=== PATIENT | male | born 1990 | race African-American/Black ===

== ENCOUNTER 2016-10-03 11:47 | Emergency (ER) | payer MEDICAID ==
[~2016-10-03] VITALS: Wt 54.0 kg
[2016-10-03] MEDS ORDERED: HYDR26CR PR (13:17)
[2016-10-03] MEDS ORDERED: DOCU-144 PO (13:17)
[2016-10-03] MEDS ORDERED: HYDR25SU23 PR (13:17)
--- NOTE | 2016-10-03 13:28 | ERD ---
ER Documentation Chief Complaint Date/Time DATE: 10/03/16 TIME: 13:27 Chief Complaint rectal bleeding intermittent for 2 wks for hemmrhoids HPI 26-year-old male comes in with a hemorrhoid that is external for the past 2 weeks with intermittent bleeding. Patient states that after his bowel movement patient reports some bleeding to the area, however no blood in his stools. There is limited pain with this. Denies fevers or chills. ROS All systems reviewed and are negative except as per history of present illness. Medications Home Meds Active Scripts Docusate Sodium* (Colace*) 100 Mg Capsule, 100 MG PO BID, #60 CAP Prov:ELVIRA WHITE PA-C 10/03/16 Hydrocortisone* Rectal (Preparation H* Cream) 1% - 26 Gm Cream.gm., 1 APPLIC VA BID, #1 TUB Prov:ELVIRA WHITE PA-C 10/03/16 Hydrocortisone Acetate (Anusol-Hc) 25 Mg Supp.rect, 1 SUPP VA BID Y for HEMORROID PAIN/ITCHING, #12 SUPP.RECT Prov:ELVIRA WHITE PA-C 10/03/16 Physical Exam Vitals Vital Signs Date Time Temp Pulse Resp B/P Pulse Ox O2 Delivery O2 Flow Rate FiO2 10/03/16 11:52 97.5 78 20 119/75 99 Physical Exam General: Well-developed, well-nourished. The patient appears in no acute distress. HEENT: Head is normocephalic, atraumatic. No scleral icterus. Neck: Supple. Nontender. Lungs: Clear to auscultation. Normal air movement. Heart: Regular rate and rhythm. S1 and S2 are normal. No murmurs, gallops, or rubs. Abdomen: Soft, nontender, nondistended. Bowel sounds are normoactive. rectal: Normal tone, there is a 1.5 cm external hemorrhoid noted at the 2 o' clock position, there is a small opening, nonthrombosed, nontender, no fluctuance or surrounding erythema. No masses. Extremities: No clubbing or cyanosis. Normal pulses. Moving extremities x 4. No weakness. Neurologic: Alert and oriented 3. No focal deficits. Skin: Normal turgor. No rash or lesions. Procedures/MDM 26-year-old male comes in with an external hemorrhoid, there is no evidence of a thrombosed hemorrhoid, perianal perirectal abscess, no signs of any infectious process. It appears that this may have been partially thrombosed and has drained on its own. Patient was advised to do sitz baths, will discharge with anusol and preparation H . Departure Diagnosis: Primary Impression: Hemorrhoid Condition: Good Patient Instructions: Hemorrhoids Referrals: [facility] YOU HAVE RECEIVED A MEDICAL SCREENING EXAM AND THE RESULTS INDICATE THAT YOU DO NOT HAVE A CONDITION THAT REQUIRES URGENT TREATMENT IN THE EMERGENCY DEPARTMENT. FURTHER EVALUATION AND TREATMENT OF YOUR CONDITION CAN WAIT UNTIL YOU ARE SEEN IN YOUR DOCTORS OFFICE WITHIN THE NEXT 1-2 DAYS. IT IS YOUR RESPONSIBILITY TO MAKE AN APPOINTMENT FOR FOLOW-UP CARE. IF YOU HAVE A PRIMARY DOCTOR --you should call your primary doctor and schedule an appointment IF YOU DO NOT HAVE A PRIMARY DOCTOR YOU CAN CALL OUR PHYSICIAN REFERRAL HOTLINE AT IF YOU CAN NOT AFFORD TO SEE A PHYSICIAN YOU CAN CHOSE FROM THE FOLLOWING [facility] [address] [facility]. [facility] [address] [facility] [facility] [address] [facility] [address] [facility]. [facility] [address] [facility]. [facility]. [address] [facility]. [facility] YOU HAVE RECEIVED A MEDICAL SCREENING EXAM AND THE RESULTS INDICATE THAT YOU DO NOT HAVE A CONDITION THAT REQUIRES URGENT TREATMENT IN THE EMERGENCY DEPARTMENT. FURTHER EVALUATION AND TREATMENT OF YOUR CONDITION CAN WAIT UNTIL YOU ARE SEEN IN YOUR DOCTORS OFFICE WITHIN THE NEXT 1-2 DAYS. IT IS YOUR RESPONSIBILITY TO MAKE AN APPOINTMENT FOR FOLOW-UP CARE. IF YOU HAVE A PRIMARY DOCTOR --you should call your primary doctor and schedule and appointment IF YOU DO NOT HAVE A PRIMARY DOCTOR YOU CAN CALL OUR PHYSICIAN REFERRAL HOTLINE AT . IF YOU CAN NOT AFFORD TO SEE A PHYSICIAN YOU CAN CHOSE FROM THE FOLLOWING [facility], [facility] INSTITUTIONS: [facility] [address] [place] [address] [facility] [address] [place] [address] [facility] + [facility] [address] [place] [address] [facility] Additional Instructions: Call your primary care doctor TOMORROW for an appointment during the next 1-2 days.See the doctor sooner or return here if your condition worsens before your appointment time. ELVIRA WHITE PA-C Oct 03, 2016 13:28
== END 2016-10-03 13:30 | disposition home or self-care (01) ==
LOC: FTE 11:47
DX: K64.4 Residual hemorrhoidal skin tags (principal)
CPT/HCPCS: 99284

== ENCOUNTER 2016-11-27 18:29 | Emergency (ER) | payer MEDICAID ==
[~2016-11-27] VITALS: Ht 175.3 cm; Wt 60.0 kg
[~2016-11-27 18:29] MED LIST: DOCU-144 PO; HYDR25SU23 PR; HYDR26CR PR
[2016-11-27 18:59] VITALS: Ht 175.3 cm; Wt 60.0 kg
--- NOTE | 2016-11-27 22:49 | ERD ---
ER Documentation Chief Complaint Date/Time DATE: 11/27/16 TIME: 22:32 Chief Complaint wound check rectal area HPI This pleasant 26-year-old male patient presents to emergency department today with possible rectal abscess or nonhealing hemorrhoid. Patient was seen in emergency department over 4 weeks ago and treated for hemorrhoids. Patient reports that he took medication as prescribed, has increased fiber, water, patient continues to have a draining rectal wound. Patient reports chronic purulent drainage and a pustule-like lesion and sphincter patient reports blood on toilet paper with wiping, painful defecation, is able to sit without discomfort. Patient denies prior history of hemorrhoids. Reports sexually active and practices sodomy, patient reports that he has not had relations since symptoms started over 4 weeks ago. ROS All systems reviewed and are negative except as per history of present illness. Medications Home Meds Active Scripts Hydrocodone/Acetaminophen ([place] 5-325 Tablet) 1 Each Tablet, 1 TAB PO Q6H Y for PAIN, #7 TAB Prov:FADUMO,MARGARITA 11/27/16 Metronidazole* (Flagyl*) 500 Mg Tablet, 500 MG PO TID for 7 Days, TAB Prov:FADUMO,MARGARITA 11/27/16 Clindamycin Hcl* (Clindamycin Hcl*) 300 Mg Capsule, 300 MG PO TID for 10 Days, CAP Prov:FADUMO,MARGARITA 11/27/16 Docusate Sodium* (Colace*) 100 Mg Capsule, 100 MG PO BID, #60 CAP Prov:ELVIRA WHITE PA-C 10/03/16 Hydrocortisone* Rectal (Preparation H* Cream) 1% - 26 Gm Cream.gm., 1 APPLIC ND BID, #1 TUB Prov:ELVIRA WHITE PA-C 10/03/16 Hydrocortisone Acetate (Anusol-Hc) 25 Mg Supp.rect, 1 SUPP ND BID Y for HEMORROID PAIN/ITCHING, #12 SUPP.RECT Prov:ELVIRA WHITE PA-C 10/03/16 Allergies Allergies: Coded Allergies: No Known Allergy (Unverified , 10/03/16) PMhx/Soc History of Surgery: No Anesthesia Reaction: No Hx Neurological Disorder: No Hx Respiratory Disorders: No Hx Cardiac Disorders: No Hx Psychiatric Problems: No Hx Miscellaneous Medical Probl: No Hx Alcohol Use: No Hx Substance Use: No Hx Tobacco Use: No Smoking Status: Never smoker Physical Exam Vitals Vital Signs Date Time Temp Pulse Resp B/P Pulse Ox O2 Delivery O2 Flow Rate FiO2 11/27/16 18:59 97.5 87 20 122/80 100 Vitals stable, triage notes reviewed Physical Exam Const: [] Head: Atraumatic Eyes: Normal Conjunctiva ENT: Normal External Ears, Nose and Mouth. Neck: Full range of motion..~ No meningismus. Resp: Clear to auscultation bilaterally Cardio: Regular rate and rhythm, no murmurs Abd: Soft, non tender, non distended. Normal bowel sounds Skin: No petechiae or rashes Back: No midline or flank tenderness Ext: No cyanosis, or edema Neur: Awake and alert Psych: Normal Mood and Affect Procedures/MDM This pleasant 26-year-old male patient presents to emergency department today for evaluation of a draining perianal lesion. Differential diagnosis includes but is not limited to rectal abscess, fistula, fissure or ulcer. Physical exam finding external opening of perianal fistula visualized, draining fluid. Case discussed with , discussed possible imaging, decided against imaging , patient will be referred to Dr. Hardik Flower, general surgery, started on clindamycin and Flagyl , and [place] as needed pain strict return to emergency department guidelines. Return to emergency department for fever, bleeding, nausea or vomiting. Take all medication as prescribed, call general surgeon, follow-up with primary care if referral is needed. I feel patient is appropriate for outpatient management follow-up as outlined above. I feel the patient is stable for discharge at this time. I have discussed results, examination findings, the treatment plan with the patient and family present prior to discharge. Indications for emergent reevaluation, side effects of medication were also discussed. All questions were answered. Patient verbalizes understanding and agrees with plan of care. Departure Diagnosis: Primary Impression: Perianal fistula Condition: Stable Patient Instructions: Anal Fistula Additional Instructions: Thank you for for coming to [facility] for your care today. Please ask your nurse or provider if you have questions about your care today and do not leave until all your questions have been answered. Please use any medications given as directed and follow-up with your doctor (or the doctor you were referred to) in the next 2-3 days. If you do not have a primary care doctor you may follow up at the [facility] (listed below). You may also use motrin and tylenol as needed for fever and/or pain unless instructed otherwise by your provider or nurse. Indications for more urgent follow-up have been discussed, but you may return to the Emergency Department at ANY time for any worrisome or worsening symptoms. If you have abdominal pain, please know that no test or exam you received is perfect and you should follow up within 8 hours for continued pain. If you had any imaging studies today, such as an X-Ray or CT Scan, these studies will be reviewed later by a radiologist. You will be called if there are important findings that were not identified today, so make sure the contact information you provided at registration is correct. If you received any narcotic pain control medicine today, such as Vicodin, Morphine or Dilaudid, your coordination and judgment may be affected for a number of hours. Please do not drive or operate heavy machinery, and you may want someone to assist you at home. If you were given a prescription for narcotic medication, be aware that it is very addictive- use sparingly and only if necessary. MARGARITA THORNE Nov 27, 2016 22:46
[2016-11-27] MEDS ORDERED: CLIN-73 PO (22:50)
[2016-11-27] MEDS ORDERED: METR500T PO (22:51)
[2016-11-27] MEDS ORDERED: HYDR-906 PO (22:51)
== END 2016-11-27 23:01 | disposition home or self-care (01) ==
LOC: FTE 18:29
DX: K60.3 Anal fistula (principal)
CPT/HCPCS: 99284

== ENCOUNTER 2016-12-21 14:06 | Emergency (ER) | payer MEDICAID ==
[~2016-12-21] VITALS: Ht 157.5 cm; Wt 61.0 kg
[~2016-12-21 14:06] MED LIST changes: +CLIN-73 PO; +HYDR-906 PO; +METR500T PO
[2016-12-21 14:10] VITALS: Ht 157.5 cm; Wt 61.0 kg
[2016-12-21] MEDS ORDERED: AMOX1TAB10 PO (14:25)
--- NOTE | 2016-12-21 14:53 | ERD ---
ER Documentation Chief Complaint Date/Time DATE: 12/21/16 TIME: 14:51 Chief Complaint HAS RECTAL FISSURE X 3 MOS, WANTS TO HAVE CHECK UP/SURGERY HPI Patient is a 26-year-old male with no medical problems who presents with an anal fissure. He has been seen twice before for the same. He said that he only has emergency [facility] and has not been able to see the surgeon like he was supposed to. He is bleeding from his anus. He thinks that it might be infected. It started more than 3 months ago. He has tried Anusol in the past without much help. He does not currently have a primary doctor. Upon review of old medical records the patient does have 2 previous visits for similar in the past. ROS All systems reviewed and are negative except as per history of present illness. Medications Home Meds Active Scripts Amoxicillin/Potassium Clav (Amox-Clav 875-125 mg Tablet) 875-125 mg Tab, 1 TAB PO BID for 7 Days, #14 TAB Prov:ANASTACIO SORIA MD 12/21/16 Hydrocodone/Acetaminophen ([place] 5-325 Tablet) 1 Each Tablet, 1 TAB PO Q6H Y for PAIN, #7 TAB Prov:FADUMO,MARGARITA 11/27/16 Metronidazole* (Flagyl*) 500 Mg Tablet, 500 MG PO TID for 7 Days, TAB Prov:FADUMO,MARGARITA 11/27/16 Clindamycin Hcl* (Clindamycin Hcl*) 300 Mg Capsule, 300 MG PO TID for 10 Days, CAP Prov:FADUMO,MARGARITA 11/27/16 Docusate Sodium* (Colace*) 100 Mg Capsule, 100 MG PO BID, #60 CAP Prov:ELVIRA WHITE PA-C 10/03/16 Hydrocortisone* Rectal (Preparation H* Cream) 1% - 26 Gm Cream.gm., 1 APPLIC [place] BID, #1 TUB Prov:ELVIRA WHITE PA-C 10/03/16 Hydrocortisone Acetate (Anusol-Hc) 25 Mg Supp.rect, 1 SUPP [place] BID Y for HEMORROID PAIN/ITCHING, #12 SUPP.RECT Prov:ELVIRA WHITE PA-C 10/03/16 Allergies Allergies: Coded Allergies: No Known Allergy (Unverified , 10/03/16) PMhx/Soc Medical and Surgical Hx: pt denies Medical Hx History of Surgery: No Anesthesia Reaction: No Hx Neurological Disorder: No Hx Respiratory Disorders: No Hx Cardiac Disorders: No Hx Psychiatric Problems: No Hx Miscellaneous Medical Probl: No Hx Alcohol Use: No Hx Substance Use: No Hx Tobacco Use: No FmHx Family History: No diabetes Physical Exam Vitals Vital Signs Date Time Temp Pulse Resp B/P Pulse Ox O2 Delivery O2 Flow Rate FiO2 12/21/16 14:10 98.3 81 18 134/86 99 Physical Exam Const: No acute distress Head: Atraumatic Eyes: Normal Conjunctiva ENT: Normal External Ears, Nose and Mouth. Neck: Full range of motion..~ No meningismus. Resp: Clear to auscultation bilaterally Cardio: Regular rate and rhythm, no murmurs Abd: Soft, non tender, non distended. Normal bowel sounds Skin: No petechiae or rashes Back: No midline or flank tenderness Ext: No cyanosis, or edema Neur: Awake and alert Rectal: Patient does have a significant anal fissure at 3:00 next to a external hemorrhoid which is not bleeding, there is no sign of perirectal abscess Procedures/MDM Patient is a 26-year-old male with no medical problems who presents with an anal fissure. The patient is otherwise well-appearing and there is no active bleeding or signs of perirectal abscess. The patient will be discharged home with prescription for Augmentin. I told him that he will need to follow-up with the [facility] to obtain surgery consultation. The patient would likely benefit from hemorrhoidectomy and repair of the anal fissure. The patient can return for any worsening symptoms. He does not require further workup or admission to the hospital at this time. Departure Diagnosis: Primary Impression: Rectal fissure Condition: Fair Patient Instructions: Having Rectal Surgery Referrals: [facility] YOU HAVE RECEIVED A MEDICAL SCREENING EXAM AND THE RESULTS INDICATE THAT YOU DO NOT HAVE A CONDITION THAT REQUIRES URGENT TREATMENT IN THE EMERGENCY DEPARTMENT. FURTHER EVALUATION AND TREATMENT OF YOUR CONDITION CAN WAIT UNTIL YOU ARE SEEN IN YOUR DOCTORS OFFICE WITHIN THE NEXT 1-2 DAYS. IT IS YOUR RESPONSIBILITY TO MAKE AN APPOINTMENT FOR FOLOW-UP CARE. IF YOU HAVE A PRIMARY DOCTOR --you should call your primary doctor and schedule and appointment IF YOU DO NOT HAVE A PRIMARY DOCTOR YOU CAN CALL OUR PHYSICIAN REFERRAL HOTLINE AT . IF YOU CAN NOT AFFORD TO SEE A PHYSICIAN YOU CAN CHOSE FROM THE FOLLOWING [facility] INSTITUTIONS: [facility] [address] [place], [place] [id number] [place] [address] [address] [place] [id number] Additional Instructions: County: Go to any of the following [facility] in the next 1-2 days. [facility] [address] [place] [address] ANASTACIO SORIA MD December 21, 2016 14:53
== END 2016-12-21 14:44 | disposition home or self-care (01) ==
LOC: E/R 14:06
DX: K60.2 Anal fissure, unspecified (principal)
CPT/HCPCS: 99283

== ENCOUNTER 2017-02-07 12:52 | Emergency (ER) | payer SELFPAY ==
[~2017-02-07] VITALS: Ht 172.7 cm; Wt 54.5 kg
[~2017-02-07 12:52] MED LIST changes: +AMOX1TAB10 PO
[2017-02-07 12:57] VITALS: Ht 172.7 cm; Wt 54.5 kg
[2017-02-07] MEDS ORDERED: ONDANSETRON (ODT) 4 MG TAB ODT STA (13:48)
[2017-02-07] MEDS ORDERED: BEN25 PO (14:18)
[2017-02-07] MEDS ORDERED: HC30CR25 TOP (14:19)
[2017-02-07] MEDS ORDERED: PRED20TA PO (14:19)
[2017-02-07] MEDS ORDERED: ONDA4TAB8 PO (14:19)
--- NOTE | 2017-02-07 14:25 | ERD ---
ER Documentation Chief Complaint Date/Time DATE: 02/07/17 TIME: 14:21 Chief Complaint rash/bumps to the arms and legs-pt noticed it this morning HPI Patient is a 26-year-old male who presents to the ED with a rash on his arms and legs since this morning. He states that the rash is itchy but not painful. He states that he used a new soap and states that it could be associated with that. Denies recent travel. Denies change in foods. He also states that he is slightly nauseous. He states that he had proposes from the street yesterday and he had an episode of nonbloody nonbilious emesis yesterday. No vomiting or diarrhea today but does feel nauseous. Denies abdominal pain. Denies leg pain or leg swelling. Denies headache or dizziness or chest pain or cough or shortness of breath. Denies fever or chills. Denies difficulty breathing or speaking. No other complaints. ROS All systems reviewed and are negative except as per history of present illness. Medications Home Meds Active Scripts Ondansetron Hcl* (Zofran*) 4 Mg Tablet, 4 MG PO Q6H for NAUSEA AND/OR VOMITING, #30 TAB Prov:JN DE LOS SANTOS PA-C 02/07/17 Prednisone* (Prednisone*) 20 Mg Tab, 40 MG PO DAILY for 4 Days, TAB Prov:JN DE LOS SANTOS PA-C 02/07/17 Hydrocortisone* Topical (Hydrocortisone* Topical) 2.5%-28.3 Gm Cream..g., 1 APPLIC TOP BID, #1 TUB Prov:JN DE LOS SANTOS PA-C 02/07/17 Diphenhydramine Hcl* (Benadryl*) 25 Mg Cap, 25 MG PO Q6, #30 CAP Prov:JN DE LOS SANTOS PA-C 02/07/17 Amoxicillin/Potassium Clav (Amox-Clav 875-125 mg Tablet) 875-125 mg Tab, 1 TAB PO BID for 7 Days, #14 TAB Prov:ANASTACIO SORIA MD 12/21/16 Hydrocodone/Acetaminophen ([place] 5-325 Tablet) 1 Each Tablet, 1 TAB PO Q6H Y for PAIN, #7 TAB Prov:FADUMO,MELODY 11/27/16 Metronidazole* (Flagyl*) 500 Mg Tablet, 500 MG PO TID for 7 Days, TAB Prov:FADUMO,MARGARITA 11/27/16 Clindamycin Hcl* (Clindamycin Hcl*) 300 Mg Capsule, 300 MG PO TID for 10 Days, CAP Prov:FADUMO,MARGARITA 11/27/16 Docusate Sodium* (Colace*) 100 Mg Capsule, 100 MG PO BID, #60 CAP Prov:ELVIRA WHITE PA-C 10/03/16 Hydrocortisone* Rectal (Preparation H* Cream) 1% - 26 Gm Cream.gm., 1 APPLIC VA BID, #1 TUB Prov:ELVIRA WHITE PA-C 10/03/16 Hydrocortisone Acetate (Anusol-Hc) 25 Mg Supp.rect, 1 SUPP VA BID Y for HEMORROID PAIN/ITCHING, #12 SUPP.RECT Prov:ELVIRA WHITE PA-C 10/03/16 Allergies Allergies: Coded Allergies: No Known Allergy (Unverified , 10/03/16) PMhx/Soc History of Surgery: No Anesthesia Reaction: No Hx Neurological Disorder: No Hx Respiratory Disorders: No Hx Cardiac Disorders: No Hx Psychiatric Problems: No Hx Miscellaneous Medical Probl: No Hx Alcohol Use: No Hx Substance Use: No Hx Tobacco Use: No Smoking Status: Never smoker FmHx Family History: No coronary disease, No diabetes, No other Physical Exam Vitals Vital Signs Date Time Temp Pulse Resp B/P Pulse Ox O2 Delivery O2 Flow Rate FiO2 02/07/17 12:57 98.2 98 16 107/63 98 Physical Exam GENERAL: Well-developed, well-nourished male. Appears in no acute distress. HEAD: Normocephalic, atraumatic. EYES: Pupils are equally reactive bilaterally. EOMs grossly intact. No conjunctival erythema. ENT: Moist mucous membranes. No uvula deviation. No kissing tonsils. No exudates. NECK: Supple. No lymphadenopathy or thyromegaly. No meningismus. negative kernig. negative brudinski. LUNG: Clear to auscultation bilaterally. No rhonchi, wheezing, rales or coarse breath sounds. HEART: Regular rate and rhythm. No murmurs, rubs or gallops. ABDOMEN: No scars, ecchymosis or rashes noted. Soft, nontender, and nondistended. Positive bowel sounds in all four quadrants. No rebound tenderness , no guarding. (-) McBurneys point tenderness. No CVA tenderness. BACK: No midline tenderness. Extremities: Equal pulses bilaterally. No peripheral clubbing, cyanosis or edema. No unilateral leg swelling. NEUROLOGIC: Alert and oriented. Moving all four extremities. 5/5 strength in all extremities. Normal speech. Steady gait. SKIN: Normal color. Warm and dry. We will like rashes on the arms. Difficult to see due to the darkness of the skin. No signs of infection. No warmth capillary refill < 2 seconds Results 24 hrs Current Medications Medications (Trade) Dose Ordered Sig/[place] Route PRN Reason Start Time Stop Time Status Last Admin Dose Admin Ondansetron HCl (Zofran Odt) 4 mg ONCE STAT ODT 02/07/17 13:48 02/07/17 13:50 DC 02/07/17 13:58 Procedures/MDM ER COURSE: I kept the patient and/or family informed of laboratory and diagnostic imaging results throughout the emergency room course. MEDICAL DECISION MAKING: This is a 26-year-old male who presents with rash and nausea x 1 day. Vital signs were reviewed. Patient is afebrile. Patient is not hypoxic. Patient is not toxic or ill-appearing. Patient's rash is likely allergic in etiology likely associated to the change in soap. Patient does not show signs of angioedema. No tongue or lip swelling and is speaking in full sentences. Patient does not show signs of respiratory distress per Low suspicion for necrotizing fasciitis, SJS, toxic epidermal necrolysis, Kawasaki, erythema multiforme, gangrene, scarlet fever, meningococcemia, sepsis, anaphylaxis, sepsis, deep space infection, or foreign body. Patient does not have abdominal pain upon examination and patient's nausea is likely related to viral. Patient was given Zofran and p.o. challenge and tolerated well with no adverse reaction. At this point no further workup is necessary. Patient to have close follow-up and return for any new or worsening symptoms. Low suspicion for ACS, AAA, perforated ulcer, bowel obstruction, cholecystitis, choledocholithiasis, cholangitis, pancreatitis, hepatic abscess, appendicitis, diverticulitis, gastroenteritis, hepatitis, peptic ulcer disease, HELLP syndrome. DISCHARGE: At this time, patient is stable for discharge and outpatient management with no new complaints during the ER course. Patient was sent home with hydrocortisone, Benadryl, Zofran and prednisone. Advised patient to start prednisone in 2 days after discontinuing soap. Patient will be discharged home with instructions to recheck for new or worsening symptoms such as fever, nausea, weakness, LOC and to follow up with primary care in the next 1-2 days. Patient was advised to return to the ER for any new or worsening symptoms. Plan was discussed and patient and/or family understands and agrees. Home instructions were given. Departure Diagnosis: Primary Impression: Nausea Additional Impression: Rash Condition: Stable Patient Instructions: Self-Care for Skin Rashes, Nausea Referrals: [facility] YOU HAVE RECEIVED A MEDICAL SCREENING EXAM AND THE RESULTS INDICATE THAT YOU DO NOT HAVE A CONDITION THAT REQUIRES URGENT TREATMENT IN THE EMERGENCY DEPARTMENT. FURTHER EVALUATION AND TREATMENT OF YOUR CONDITION CAN WAIT UNTIL YOU ARE SEEN IN YOUR DOCTORS OFFICE WITHIN THE NEXT 1-2 DAYS. IT IS YOUR RESPONSIBILITY TO MAKE AN APPOINTMENT FOR FOLOW-UP CARE. IF YOU HAVE A PRIMARY DOCTOR --you should call your primary doctor and schedule an appointment IF YOU DO NOT HAVE A PRIMARY DOCTOR YOU CAN CALL OUR PHYSICIAN REFERRAL HOTLINE AT IF YOU CAN NOT AFFORD TO SEE A PHYSICIAN YOU CAN CHOSE FROM THE FOLLOWING [facility] [address] [facility] [address] [facility]. [facility] [address] [facility] [facility] [address] [facility]. [facility] [address] [facility] [facility]. [address] Additional Instructions: Call your primary care doctor TOMORROW for an appointment during the next 1-2 days.See the doctor sooner or return here if your condition worsens before your appointment time. JN DE LOS SANTOS PA-C Feb 07, 2017 14:25
== END 2017-02-07 14:36 | disposition home or self-care (01) ==
LOC: FTE 12:52
DX: R11.0 Nausea (principal)
CPT/HCPCS: 99284